=== PATIENT | male | born 1965 | race African-American/Black ===

== ENCOUNTER 2018-08-17 17:51 | Emergency (ER) | payer OTHER ==
[~2018-08-17] VITALS: Ht 172.7 cm; Wt 108.9 kg
[2018-08-17 17:59] VITALS: Ht 172.7 cm; Wt 108.9 kg
[2018-08-17 19:08] VITALS: BP 149/73
== END 2018-08-17 19:08 | disposition home or self-care (01) ==
LOC: ED 17:51
DX: M54.6 Pain in thoracic spine (principal); I10 Essential (primary) hypertension; E11.9 Type 2 diabetes mellitus without complications; V49.88XA Car occupant (driver) (passenger) injured in other specified transport accidents, initial encounter; Y93.89 Activity, other specified; Y92.89 Other specified places as the place of occurrence of the external cause; Y99.8 Other external cause status
CPT/HCPCS: Q0162